=== PATIENT | female | born 1980 | race Caucasian/White ===

== ENCOUNTER 2019-03-26 10:05 | Emergency (ER) | payer SELFPAY ==
[~2019-03-26] VITALS: Ht 167.6 cm; Wt 69.9 kg
[2019-03-26 10:13] VITALS: Ht 167.6 cm; Wt 69.9 kg
[2019-03-26 15:31] VITALS: BP 125/76
== END 2019-03-26 15:31 | disposition home or self-care (01) ==
LOC: ED 10:05
DX: H91.91 Unspecified hearing loss, right ear (principal); R51 Headache
CPT/HCPCS: J1885